=== PATIENT | female | born 1990 | race Caucasian/White ===

== ENCOUNTER 2024-05-24 04:32 | Emergency (ER) | payer SELFPAY ==
[~2024-05-24] VITALS: Ht 157.5 cm; Wt 100.0 kg
[2024-05-24 04:35] VITALS: O2SAT 97
[2024-05-24] MEDS: SODIUM CHLORIDE 0.9% 1,000 ML IV ONE (05:45)
[2024-05-24 07:00] LABS: BASOPHILS % 0.9 % (0.0-2.0); EOSINOPHILS % 0.4 % (0.0-5.0); HEMOGLOBIN. 12.5 g/dL (12.0-16.0); LYMPHOCYTES % 22.3 % (20.0-50.0); MEAN CORPUSCULAR HEMOGLOBIN 29.9 pg (28.0-32.0); MEAN CORPUSCULAR HGB CONC 32.9 g/dL (31.0-37.0); MEAN PLATELET VOLUME 11.2 fl (7.4-10.4); MONOCYTES % 3.8 % (2.0-8.0); NEUTROPHILS % 72.6 % (40.0-76.0); PLATELET 224 x1000/uL (130-400); RED BLOOD CELL COUNT 4.17 mill/uL (4.2-5.4); RED CELL DISTRIBUTION WIDTH 13.1 % (11.6-14.6); WHITE BLOOD COUNT 11.3 x1000/uL (4.5-11.0)
[2024-05-24 07:11] LABS: CHLORIDE 109 mEq/L (98-107); SODIUM 141 mEq/L (136-145)
[2024-05-24 07:12] LABS: CALCIUM 8.9 mg/dL (8.7-10.4); CARBON DIOXIDE 18 mEq/L (21-32)
[2024-05-24 07:17] LABS: CREATININE 0.7 mg/dL (0.6-1.0); ETHANOL BLOOD 139 mg/dL (<10); GLUCOSE 138 mg/dL (70-105); UREA NITROGEN BLOOD 10 mg/dL (9-23)
[2024-05-24 07:20] LABS: HCG SCREEN NEGATIVE
[2024-05-24] MEDS: LEVETIRACETAM 500MG TABLET PO ONE (08:35)
[2024-05-24 09:46] VITALS: BP 128/64; PULSE 98; RESP 18; TEMP 36.89184; O2SAT 100
== END 2024-05-24 09:50 | disposition home or self-care (01) ==
LOC: ER 04:41
DX: F10.129 Alcohol abuse with intoxication, unspecified (principal); R56.9 Unspecified convulsions; Y90.9 Presence of alcohol in blood, level not specified
CPT/HCPCS: 80048; 80320; 84703; 85025; 36415; 96360; 99283; J7030; G0480